=== PATIENT | female | born 1970 | race Native Hawaiian/Other Pacific Islander ===

== ENCOUNTER → 2020-09-18 | Outpatient (CLI) | payer BC, OTHER | LOC: INF 08:10 | PROVIDERS: ATTEND Internal Medicine | DX: Z23 Encounter for immunization (principal) | CPT/HCPCS: 96372 ==

== ENCOUNTER 2020-10-12 14:30 | Outpatient (CLI) | payer BC, OTHER | END 2020-10-12 23:59 | disposition home or self-care (01) | LOC: INF 14:30 | PROVIDERS: ATTEND Internal Medicine | DX: Z23 Encounter for immunization (principal) | CPT/HCPCS: 96372 ==

== ENCOUNTER 2022-04-05 11:46 | Emergency (ER) | payer OTHER ==
[~2022-04-05] VITALS: Ht 165.1 cm; Wt 81.6 kg
[2022-04-05 11:51] VITALS: BP 141/84; TEMP 98.1
== END 2022-04-05 14:13 | disposition home or self-care (01) ==
LOC: ED 11:46
DX: S90.31XA Contusion of right foot, initial encounter (principal); X50.1XXA Overexertion from prolonged static or awkward postures, initial encounter; Y92.89 Other specified places as the place of occurrence of the external cause
CPT/HCPCS: 96372; 99283; J1885